=== PATIENT | male | born 1945 | race Caucasian/White ===

== ENCOUNTER 2020-10-01 04:37 | Day surgery (SDC) | payer OTHER, BC | END 2020-10-01 09:22 | disposition home or self-care (01) | LOC: JASU-ENDO 04:37 | PROC: 0DBL8ZX Excision of Transverse Colon, Via Natural or Artificial Opening Endoscopic, Diagnostic (ICD-10-PCS; 2020-10-01) | PROC: 0DBK8ZX Excision of Ascending Colon, Via Natural or Artificial Opening Endoscopic, Diagnostic (ICD-10-PCS; 2020-10-01) | PROC: 0DBP8ZX Excision of Rectum, Via Natural or Artificial Opening Endoscopic, Diagnostic (ICD-10-PCS; principal; 2020-10-01 08:00) ==

== ENCOUNTER 2022-05-11 14:53 | Emergency (ER) | payer OTHER, BC ==
[2022-05-11 15:10] VITALS: BP 138/93; PULSE 91; RESP 19; TEMP 98.6; BMI 25.2
[2022-05-11] MEDS ORDERED: DIPHTH,PERTUSS(ACELL),TET 0.5 ML DISP.SYRIN IM ONE ×2 (15:11→15:18)
== END 2022-05-11 15:28 | disposition home or self-care (01) ==
LOC: JERFT 14:53 → JER 14:53 → JERFT 15:28
PROC: 0HQGXZZ Repair Left Hand Skin, External Approach (ICD-10-PCS; principal; 2022-05-11)
PROC: 3E0234Z Introduction of Serum, Toxoid and Vaccine into Muscle, Percutaneous Approach (ICD-10-PCS; 2022-05-11)
DX: S61.211A Laceration without foreign body of left index finger without damage to nail, initial encounter (principal); W26.8XXA Contact with other sharp object(s), not elsewhere classified, initial encounter
CPT/HCPCS: 12001-25; 90471; 90715; 99282-25